=== PATIENT | female | born 1960 | race Caucasian/White ===

== ENCOUNTER 2020-04-24 11:47 | Emergency (ER) | payer OTHER ==
[~2020-04-24] VITALS: Ht 165.1 cm; Wt 56.7 kg
[2020-04-24] MEDS ORDERED: NOHOMEMEDICATIONS (12:23)
[2020-04-24] MEDS ORDERED: FLEXERIL PO (13:57)
[2020-04-24] MEDS ORDERED: IBUPROFEN 600600 M1 PO (13:57)
[2020-04-24 14:06] VITALS: BP 140/72
== END 2020-04-24 14:07 | disposition home or self-care (01) ==
LOC: ER 11:47
DX: S16.1XXA Strain of muscle, fascia and tendon at neck level, initial encounter (principal); Z88.0 Allergy status to penicillin; Z90.89 Acquired absence of other organs; V49.88XA Car occupant (driver) (passenger) injured in other specified transport accidents, initial encounter; Y93.89 Activity, other specified; Y92.413 State road as the place of occurrence of the external cause; Y99.9 Unspecified external cause status

== ENCOUNTER 2021-11-22 08:37 | Emergency (ER) | payer OTHER ==
[~2021-11-22] VITALS: Ht 165.1 cm; Wt 61.2 kg
[~2021-11-22 08:37] MED LIST: FLEXERIL PO; IBUPROFEN 600600 M1 PO; NOHOMEMEDICATIONS
[2021-11-22 08:55] LABS: ABSOLUTE NEUTROPHILS 4.3 thou/uL (1.4-8.2); BASOPHILS 0.6 % (0.0-2.0); EOSINOPHILS 0.6 % (0.0-3.0); HEMATOCRIT 38.8 % (37.0-47.0); HEMOGLOBIN 12.8 gm/dL (12.0-15.0); LYMPHOCYTES 25.6 % (24.0-44.0); MCH 30.7 pg (26.0-34.0); MCHC 33.1 g/dL (28.0-37.0); MCV 92.9 fL (80.0-100.0); MONOCYTES 6.4 % (1.0-8.0); PLATELET COUNT 256 thou/uL (150-400); POLYS 66.8 % (36.0-66.0); RBC 4.17 mil/uL (4.20-5.00); RDW 15.2 % (10.5-14.5); WBC 6.4 thou/uL (4.0-11.0)
--- NOTE | 2021-11-22 09:02 | EKG ---
[address] [place] [address] ELECTROCARDIOGRAM REPORT Name: STEPHANIE MARY Room #: [facility]..#: [id number] Admission: Attend Phys: Discharge: Date of : 56 Report #: [id number] [facility] ED Test Date: 2021-11-22 Test Time: 08:47:56 Pat Name: STEPHANIE MARY Department: Room: Gender: F Stucco Mason: Devin : 1960 Requested By: Ena Fields Order Number: [id number] MD: Armando Maciel Measurements Intervals [place] Rate: 70 P: -9 OK: 142 QRS: 47 QRSD: 81 T: 35 QT: 396 QTc: 428 Interpretive Statements Sinus rhythm Normal tracing No previous ECG available for comparison Electronically Signed On 11-22-2021 9:02:32 METAL STAMPING MACHINE OPERATOR by Armando Maciel [email or web address] <ELECTRONICALLY SIGNED> By: Armando Maciel MD, [facility] 11/22/21901 08 0847 Armando Maciel MD, FACC /EPI
[2021-11-22 09:10] LABS: ALBUMIN 3.8 g/dL (3.4-5.0); CREATININE 0.8 mg/dL (0.6-1.0); POTASSIUM 4.1 mmol/L (3.5-5.1); TOTAL BILIRUBIN 0.6 mg/dL (0.2-1.0); TOTAL PROTEIN 6.4 g/dL (6.4-8.2)
--- NOTE | 2021-11-22 11:50 | EKG ---
[place] [address] [facility] [place] [address] ELECTROCARDIOGRAM REPORT Name: STEPHANIE MARY [facility] [id number] Admission: 11/22/21 Attend Phys: Discharge: Date of : 56 Report #: [id number] [facility] ED Test Date: 2021-11-22 Test Time: 11:01:32 Pat Name: STEPHANIE MARY Department: Room: Gender: F Channel Director: : 1960 Requested By: Ena Fields Order Number: [id number] MD: Rodrigo Desai Measurements Intervals [place] Rate: 67 P: 9 MN: 136 QRS: 64 QRSD: 89 T: 47 QT: 414 QTc: 437 Interpretive Statements Sinus rhythm Compared to ECG 11/22/2021 08:47:56 No significant changes Electronically Signed On 11-22-2021 11:50:17 FLAG DECORATOR by Rodrigo Desai [email or web address] <ELECTRONICALLY SIGNED> By: Rodrigo Desai MD, [facility] 11/22/21 1150 1101 1101 Rodrigo Desai MD, FACC /EPI
[2021-11-22 14:35] VITALS: BP 116/49
== END 2021-11-22 14:45 | disposition home or self-care (01) ==
LOC: ER 08:37
PROVIDERS: Student in an Organized Health Care Education/Training Program
DX: R07.89 Other chest pain (principal); Z98.890 Other specified postprocedural states; Z88.2 Allergy status to sulfonamides; Z88.0 Allergy status to penicillin; Z88.6 Allergy status to analgesic agent